=== PATIENT | female | born 1960 | race American Indian/Alaskan Native ===

== ENCOUNTER 2017-07-15 17:40 | Emergency (ER) | payer OTHER ==
--- NOTE | 2017-07-15 18:53 | Emergency Department Report ---
ED Chest Pain HPI - General Chief Complaint: Chest Pain Stated Complaint: CHEST PAIN Time Seen by Provider: 07/15/17 18:37 Source: patient, EMS Mode of arrival: Stretcher Limitations: No Limitations - History of Present Illness Initial Comments: 57-year-old female the past medical history hypertension presents to the hospital complaints of right-sided chest pain started all of a sudden one hour prior to arrival. Pain is in her right chest and radiates to the back. Pain started after doing stretches. Pain is constant and fluctuating in intensity and described as a pressure. Pain is rated 6/10 in intensity currently. Positive nausea without vomiting. She denies shortness of breath, diaphoresis, calf tenderness, or leg asymmetry. Patient just returned from a trip to [place] yesterday. Reports a negative stress test 2 years ago at a hospital in [place]. Patient received nitroglycerin and aspirin prior to arrival without improvement in chest pain the patient now has a headache. Patient states she's been compliant with her Lotrel but admits to missing a dose last night. Patient took 1 dose pain started prior to arrival to the ED. Patient is a OR nurse Severity scale (0 -10): 10 - Related Data Home Medications Medication Instructions Recorded Confirmed Last Taken Amlodipine Besylate/Benazepril 1 each PO QDAY 11/07/13 11/07/13 Unknown [Lotrel 5-20 mg] Previous Rx's Medication Instructions Recorded Last Taken Type Cyclobenzaprine HCl [Flexeril 5 MG 5 mg PO TID #15 tab 03/23/16 Unknown Rx TAB] Ibuprofen [Motrin 600 MG tab] 600 mg PO Q8H PRN #30 tablet 03/23/16 Unknown Rx Ibuprofen [Motrin 600 MG tab] 600 mg PO Q8H PRN #30 tablet 07/15/17 Unknown Rx oxyCODONE /ACETAMINOPHEN [Percocet 1 tab PO Q6HR PRN #12 tablet 07/15/17 Unknown Rx 5/325 mg] Allergies Allergy/AdvReac Type Severity Reaction Status Date / Time No Known Allergies Allergy Verified 11/07/13 15:14 Heart Score - HEART Score History: Slightly suspicious EKG: Normal Age: 45-65 Risk factors: 1-2 risk factors Troponin: < normal limit HEART Score: 2 ED Review of Systems ROS: Stated complaint: CHEST PAIN Other details as noted in HPI Comment: All other systems reviewed and negative Other: Constitutional: No fevers chills Eyes: No eye pain visual changes ENT: No ear pain or throat pain Neck: Denies pain Respiratory: Denies cough wheezing shortness of breath Cardiovascular: Denies palpitations, syncope GI: Denies abdominal pain, nausea, vomiting, diarrhea : Denies dysuria Musculoskeletal: as per hpi Skin: Denies rash, lesions, erythema Neurologic: Denies headache, numbness, weakness Psychiatric: Denies suicidal ideation, hallucinations ED Past Medical Hx - Past Medical History Previous Medical History?: Yes Hx Hypertension: Yes Hx Heart Attack/AMI: No Hx Congestive Heart Failure: No Hx Diabetes: No Hx Deep Vein Thrombosis: No Hx Sickle Cell Disease: No Hx Asthma: No Hx COPD: No Hx HIV: No - Surgical History Past Surgical History?: Yes Hx Coronary Stent: No Hx Open Heart Surgery: No Hx Pacemaker: No Hx Internal Defibrillator: No Hx Cholecystectomy: No Hx Appendectomy: Yes Hx Breast Surgery: No - Social History Smoking Status: Never Smoker Substance Use Type: None - Medications Home Medications: Home Medications Medication Instructions Recorded Confirmed Last Taken Type Amlodipine Besylate/Benazepril 1 each PO QDAY 11/07/13 11/07/13 Unknown History [Lotrel 5-20 mg] Cyclobenzaprine HCl [Flexeril 5 MG 5 mg PO TID #15 tab 03/23/16 Unknown Rx TAB] Ibuprofen [Motrin 600 MG tab] 600 mg PO Q8H PRN #30 tablet 03/23/16 Unknown Rx Ibuprofen [Motrin 600 MG tab] 600 mg PO Q8H PRN #30 tablet 07/15/17 Unknown Rx oxyCODONE /ACETAMINOPHEN [Percocet 1 tab PO Q6HR PRN #12 tablet 07/15/17 Unknown Rx 5/325 mg] ED Physical Exam - General Limitations: No Limitations - Other Other exam information: General: No limitations, patient is alert in no acute distress Head exam: Atraumatic, normocephalic Eyes exam: Normal appearance ENT: Moist mucous membrane, normal oropharynx Neck exam: Normal inspection, full range of motion Respiratory exam: Clear to auscultation bilateral, no wheezes, rales, crackles Cardiovascular: Normal rate and rhythm, normal heart sounds. Tenderness to right lateral lower chest wall Abdomen: Soft, nondistended, and nontender, with normal bowel sounds, no rebound, or guarding Extremity: Full range of motion normal inspection no deformity Back: Normal Inspection, full range of motion, no tenderness Neurologic: Alert, oriented x3, cranial nerves intact, no motor or sensory deficit Psychiatric: normal affect, normal mood Skin: Warm, dry, intact ED Course Vital Signs 07/15/17 07/15/17 07/15/17 16:49 17:00 18:12 Temperature Pulse Rate 80 80 75 Respiratory 27 H 28 H 12 Rate Blood Pressure 141/79 141/79 138/84 Blood Pressure [Left] O2 Sat by Pulse 98 100 Oximetry 07/15/17 07/15/17 07/15/17 18:16 18:25 18:30 Temperature 97.4 F L Pulse Rate 75 81 78 Respiratory 13 11 L 10 L Rate Blood Pressure 167/108 169/103 Blood Pressure 167/108 [Left] O2 Sat by Pulse 99 99 Oximetry 07/15/17 07/15/17 07/15/17 18:45 19:00 19:23 Temperature Pulse Rate 78 79 Respiratory 14 20 Rate Blood Pressure 169/103 173/104 167/108 Blood Pressure [Left] O2 Sat by Pulse 100 100 98 Oximetry 07/15/17 07/15/17 07/15/17 19:30 19:34 19:40 Temperature 98.5 F Pulse Rate 81 77 11 L Respiratory 20 20 Rate Blood Pressure 142/75 Blood Pressure [Left] O2 Sat by Pulse 97 100 Oximetry - Reevaluation(s) Reevaluation #1: 07/15/17 20:35 Patient reports feeling much better after receiving pain medication IV. Blood pressure also trending downward. KOKI score - Koki Score Age > 65: (0) No Aspirin use within the Past 7 Days: (0) No 3 or more CAD Risk Factors: (1) Yes 2 or more Angina events in past 24 hrs: (0) No Known CAD with more than 50% Stenosis: (0) No Elevated Cardiac Markers: (0) No ST Deviation Greater than 0.5mm: (0) No KOKI Score: 1 ED Medical Decision Making - Lab Data Result diagrams: 07/15/17 18:43 07/15/17 18:43 Lab Results 07/15/17 07/15/17 07/15/17 Range/Units 18:43 18:43 18:43 WBC 11.2 H (4.5-11.0) K/mm3 RBC 4.83 (3.65-5.03) M/mm3 Hgb 14.1 (10.1-14.3) gm/dl Hct 43.7 H (30.3-42.9) % MCV 91 (79-97) fl MCH 29 (28-32) pg MCHC 32 (30-34) % RDW 13.7 (13.2-15.2) % Plt Count 249 (140-440) K/mm3 Lymph % (Auto) 16.1 (13.4-35.0) % [place] % (Auto) 6.4 (0.0-7.3) % Eos % (Auto) 0.7 (0.0-4.3) % Baso % (Auto) 0.5 (0.0-1.8) % Lymph # 1.8 (1.2-5.4) K/mm3 [place] # 0.7 (0.0-0.8) K/mm3 Eos # 0.1 (0.0-0.4) K/mm3 Baso # 0.1 (0.0-0.1) K/mm3 Seg Neutrophils % 76.3 H (40.0-70.0) % Seg Neutrophils # 8.5 H (1.8-7.7) K/mm3 PT 12.7 (12.2-14.9) Sec. INR 0.91 (0.87-1.13) D-Dimer 188.76 (0-234) ng/mlDDU Sodium 139 (137-145) mmol/L Potassium 4.0 (3.6-5.0) mmol/L Chloride 97.2 L (98-107) mmol/L Carbon Dioxide 28 (22-30) mmol/L Anion Gap 18 mmol/L BUN 14 (7-17) mg/dL Creatinine 0.5 L (0.7-1.2) mg/dL Estimated GFR > 60 ml/min BUN/Creatinine Ratio 28 % Glucose 89 (65-100) mg/dL Calcium 9.1 (8.4-10.2) mg/dL Troponin T < 0.010 (0.00-0.029) ng/mL - EKG Data -: EKG Interpreted by Ne EKG shows normal: sinus rhythm, axis (qrs 52), QRS complexes (90), ST-T waves ( no semi/t inv) Rate: normal (74) - EKG Data When compared to previous EKG there are: previous EKG unavailable - Radiology Data Radiology results: image reviewed (chest x-ray: naf, narrow mediastinum) - Medical Decision Making Patient's pain is reproducible with palpation. Suspect muscle strain since pain began after stretching. Blood pressure elevated likely secondary to acute pain in the blood pressure medication noncompliance. EKG does not show any acute abnormality. Initial troponin negative. Pain is right sided and does not include the left side or any associated symptoms. D-dimer negative despite recent travel and no signs of DVT on exam therefore a CT angiogram not performed - Differential Diagnosis muscle strain, pe, mi, dissection, hypertensive emergency Critical Care Time: No Critical care attestation.: If time is entered above; I have spent that time in minutes in the direct care of this critically ill patient, excluding procedure time. ED Disposition Clinical Impression: Chest wall muscle strain Disposition: DC- TO HOME OR SELFCARE Is pt being admited?: No Does the pt Need Aspirin: No Condition: Stable Instructions: Thoracic Pain (ED) Additional Instructions: Take the medication as needed for pain. Follow-up with your doctor. Return if symptoms worsen as indicated by the discharge instructions Prescriptions: Ibuprofen [Motrin 600 MG tab] 600 mg PO Q8H PRN #30 tablet PRN Reason: Pain oxyCODONE /ACETAMINOPHEN [Percocet 5/325 mg] 1 tab PO Q6HR PRN #12 tablet PRN Reason: Pain Referrals: PRIMARY CARE, [Primary Care Provider] - 3-5 Days Forms: Work/School Release Form(ED) Time of Disposition: 20:38
[2017-07-15 19:06] LABS: Basophils % (Auto) 0.5 % (0.0-1.8); Eosinophils % (Auto) 0.7 % (0.0-4.3); Hematocrit 43.7 % (30.3-42.9); Hemoglobin 14.1 gm/dl (10.1-14.3); Mean Corpuscular HGB Conc 32 % (30-34); Mean Corpuscular Hemoglobin 29 pg (28-32); Mean Corpuscular Volume 91 fl (79-97); Platelet Count 249 K/mm3 (140-440); Red Blood Count 4.83 M/mm3 (3.65-5.03); Red Cell Distribution Width 13.7 % (13.2-15.2); White Blood Count 11.2 K/mm3 (4.5-11.0)
[2017-07-15] MEDS ORDERED: MORPHINE IV ONE (19:06)
[2017-07-15] MEDS ORDERED: TORADOL IV ONE (19:06)
[2017-07-15] MEDS ORDERED: ZOFRAN IV ONE (19:06)
[2017-07-15 19:17] LABS: INR 0.91 (0.87-1.13)
[2017-07-15 19:24] LABS: Anion Gap 18 mmol/L; BUN/Creatinine Ratio 28; Blood Urea Nitrogen 14 mg/dL (7-17); Calcium 9.1 mg/dL (8.4-10.2); Carbon Dioxide 28 mmol/L (22-30); Chloride 97.2 mmol/L (98-107); Glucose 89 mg/dL (65-100); Sodium 139 mmol/L (137-145)
--- NOTE | 2017-07-15 20:29 | XRay Report ---
FINAL REPORT PROCEDURE: XR CHEST 1V AP TECHNIQUE: Chest radiograph anteroposterior view. CPT 28951 HISTORY: right chest pain COMPARISON: No prior studies are available for comparison. FINDINGS: Heart: Normal. Mediastinum/Vessels: Normal. Lungs/Pleural space: Lungs are clear and expanded. There are no infiltrates, effusions or pneumothoraces.. Bony thorax: No acute osseous abnormality. Life support devices: None. IMPRESSION: No acute cardiopulmonary abnormality.
[2017-07-15 20:59] VITALS: BP 148/89
== END 2017-07-15 20:59 | disposition home or self-care (01) ==
LOC: ED 17:40
DX: S29.011A Strain of muscle and tendon of front wall of thorax, initial encounter (principal); I10 Essential (primary) hypertension; Z90.49 Acquired absence of other specified parts of digestive tract; X58.XXXA Exposure to other specified factors, initial encounter; Y93.89 Activity, other specified; Y92.89 Other specified places as the place of occurrence of the external cause; Y99.8 Other external cause status
CPT/HCPCS: 36415; 71010; 80048; 84484; 85025; 85379; 85610; 93005; 93010; 96374; 96375; 99285; J1885; J2270; J2405